=== PATIENT | female | born 1930 | race Caucasian/White ===

== ENCOUNTER → 2017-06-01 | Outpatient (CLI) | payer OTHER ==
--- NOTE | 2017-06-01 15:47 | PCVCIMAG ---
APPROVED REPORT Study performed: 06/01/2017 13:11:18 EXAM: Comprehensive 2D, Doppler, and color-flow Echocardiogram Patient Location: Echo lab Room #: 2Status: routine BSA: 1.71 HR: 75 bpmBP: 120/78 mmHg Rhythm: Atrial Fibrillation Other Information Study Quality: Good Risk Factors: Cardiac Risk Factors: HTN Indications Aortic Valve Disease Atrial Fibrillation Hypertension/HDD 2D Dimensions LVEF(%): 61.67 (>50%) IVSd: 9.57 (7-11mm)LVOT Diam: 19.43 (18-24mm) LVDd: 47.55 mm PWd: 9.64 (7-11mm)Ascending Ao: 29.43 (22-36mm) LVDs: 31.80 (25-40mm) Left Atrium: 39.83 (27-40mm) Aortic Root: 25.55 mm LV Single Plane 4CH: 58.07 % LV Single Plane 2CH: 60.79 %Argueta's LVEF: 59.43 % Biplane EF: 59.6 % Volumes Left Atrial Volume (Systole) Single Plane 4CH: 67.73 mLSingle Plane 2CH: 53.32 mL Biplane LA Volume: 62.00 mLLA ESV Index: 36.00 mL/m2 Aortic Valve AoV Peak Jordi.: 3.98 m/s AO Peak Gr.: 57.78 mmHgLVOT Max P.04 mmHg AO Mean Gr.: 43.77 mmHgLVOT Mean P.03 mmHg AO V2 Mean: 3.20 m/sLVOT Max V: 0.89 m/s AO V2 VTI: 97.88 cmLVOT Mean V: 0.67 m/s JANI (VTI): 0.60 dt3DMVM V1 VTI: 19.91 cm JANI Vmax: 0.66 cm2 SV (LVOT): 59.01 mL Mitral Valve MV E Max Jordi.: 1.42 m/s MV PHT: 58.10 ms MVA (PHT): 3.79 cm2 Pulmonary Valve PV Peak Jordi.: 1.14 m/sPV Peak Gr.: 5.23 mmHg Tricuspid Valve TR Peak Jordi.: 2.74 m/s TR Peak Gr.: 30.04 mmHg TV Vmax: 0.96 m/sPA Pressure: 37.00 mmHg Left Ventricle The left ventricle is normal size. There is normal LV segmental wall motion. Mild concentric left ventricular hypertrophy. Left ventricular systolic function is normal. The left ventricular ejection fraction is within the normal range. LVEF is 55-60%. This study is not technically sufficient to allow evaluation of the LV diastolic function due to atrial fibrillation. Right Ventricle The right ventricle is normal size. The right ventricular systolic function is normal. Atria Left atrium is mildly dilated. The right atrium size is normal. Aortic Valve Aortic valve is trileaflet. Aortic valve leaflets are heavily calcified with severely decreased opening. Trace aortic regurgitation. Severe aortic stenosis. Averaged mean aortic valve gradient is 43.8mmHg. Averaged Peak aortic valve gradient is 63.4 mmHg. Calculated JANI by the continuity equation is 0.6-0.7cm2. Mitral Valve The mitral valve is normal in structure. Trace to mild mitral regurgitation. No evidence of mitral valve stenosis. Tricuspid Valve The tricuspid valve is normal in structure. Trace to mild tricuspid regurgitation. Mild pulmonary hypertension with a PA pressure of 37 mmHg. Pulmonic Valve The pulmonary valve is normal in structure. Mild pulmonic regurgitation. Great Vessels The aortic root is normal in size. The ascending aorta is normal in size. IVC is normal in size and collapses with >50% inspiration Pericardium There is no pericardial effusion. There is no pleural effusion. <Conclusion> The left ventricle is normal size. Mild concentric left ventricular hypertrophy. Left ventricular systolic function is normal. The left ventricular ejection fraction is within the normal range. LVEF is 55-60%. This study is not technically sufficient to allow evaluation of the LV diastolic function due to atrial fibrillation. The right ventricle is normal size. Left atrium is mildly dilated. The right atrium size is normal. Aortic valve is trileaflet. Aortic valve leaflets are heavily calcified with severely decreased opening. Severe aortic stenosis. Averaged mean aortic valve gradient is 43.8mmHg. Averaged Peak aortic valve gradient is 63.4 mmHg. Calculated JANI by the continuity equation is 0.6-0.7cm2. Trace to mild mitral regurgitation. Trace to mild tricuspid regurgitation. Mild pulmonary hypertension with a PA pressure of 37 mmHg. There is no pericardial effusion.
== END | disposition home or self-care (01) ==
LOC: PCVCIMAG 12:59
PROVIDERS: ATTEND Internal Medicine Cardiovascular Disease
DX: I35.0 Nonrheumatic aortic (valve) stenosis (principal); I37.1 Nonrheumatic pulmonary valve insufficiency; I12.9 Hypertensive chronic kidney disease with stage 1 through stage 4 chronic kidney disease, or unspecified chronic kidney disease; N18.9 Chronic kidney disease, unspecified; I48.91 Unspecified atrial fibrillation; E78.00 Pure hypercholesterolemia, unspecified; I87.2 Venous insufficiency (chronic) (peripheral); R94.31 Abnormal electrocardiogram [ECG] [EKG]; Z79.899 Other long term (current) drug therapy
CPT/HCPCS: 80061; 93005; 93306; G0463